=== PATIENT | male | born 1990 | race Caucasian/White ===

== ENCOUNTER 2022-04-27 20:05 | Emergency (ER) | payer OTHER ==
[~2022-04-27] VITALS: Ht 182.9 cm; Wt 79.8 kg
[2022-04-27] MEDS ORDERED: KETOROLAC 60 MG VIAL (30MG/ML) IM ONE (21:00)
[2022-04-27] MEDS ORDERED: CEPH500C2 PO (21:14)
[2022-04-27] MEDS ORDERED: IBUP-2070 PO (21:14)
[2022-04-27 21:36] VITALS: BP 121/81
== END 2022-04-27 21:35 | disposition home or self-care (01) ==
LOC: EDH 20:05
DX: S61.212A Laceration without foreign body of right middle finger without damage to nail, initial encounter (principal); E10.8 Type 1 diabetes mellitus with unspecified complications; W23.2XXA Caught, crushed, jammed or pinched between a moving and stationary object, initial encounter; Y93.89 Activity, other specified; Y92.89 Other specified places as the place of occurrence of the external cause; Y99.8 Other external cause status
CPT/HCPCS: 99283; 73140; 96372; J1885